=== PATIENT | male | born 1985 ===

== ENCOUNTER → 2017-05-09 | Outpatient (REF) ==
--- NOTE | 2017-05-09 15:51 | REP ---
Right knee series: Five views. History: Degenerative disc disease. Findings: Five views of the right knee demonstrate normal bones, joints, and soft tissues. No evidence of joint effusion or erosive change. Impression: Negative right knee radiographs. Signed by Nirav Marsh MD 05/09/2017 05:30 P
== END ==
LOC: M SMT 12:55
PROVIDERS: ATTEND Internal Medicine
DX: M54.5 Low back pain (principal)

== ENCOUNTER → 2017-05-17 | Outpatient (REF) | payer BC ==
[2017-05-17 13:31] LABS: BASO % 0.2 % (0.0-1.0); EOS # 0.1 10^3/uL (0.0-0.50); EOS % 2.2 % (0.0-3.0); IMMATURE GRANULOCYTE % 0.2 % (0-0); LYMPH # 0.9 10^3/uL (1.5-4.5); LYMPH % 14.2 % (24.0-44.0); MEAN CORPUSCULAR HGB CONC 33.5 g/dl (32.0-36.5); MEAN CORPUSCULAR VOLUME 89.7 fl (80.0-96.0); MONO # 0.4 10^3/uL (0.0-0.8); MONO % 6.2 % (0.0-5.0); NEUTROPHILS # 4.6 10^3/uL (1.8-7.7); PLATELET COUNT, AUTOMATED 220 10^3/uL (150-450); RED CELL DISTRIBUTION WIDTH 13.3 % (11.5-14.5)
[2017-05-17 13:42] LABS: ALBUMIN 4.1 GM/DL (3.2-5.2); ALBUMIN/GLOBULIN RATIO 1.37 (1.00-1.93); ALKALINE PHOSPHATASE 77 U/L (45-117); ALT/SGPT 62 U/L (12-78); ANION GAP 7 MEQ/L (8-16); AST/SGOT 33 U/L (15-37); BILIRUBIN,TOTAL 0.3 MG/DL (0.2-1.0); BLOOD UREA NITROGEN 17 MG/DL (7-18); CALCIUM LEVEL 8.9 MG/DL (8.5-10.1); CARBON DIOXIDE LEVEL 25 MEQ/L (21-32); CHLORIDE LEVEL 108 MEQ/L (98-107); CREATININE FOR GFR 0.94 MG/DL (0.70-1.30); GLOMERULAR FILTRATION RATE > 60.0 (>60); GLUCOSE, FASTING 107 MG/DL (70-105); POTASSIUM SERUM 3.5 MEQ/L (3.5-5.1); SODIUM LEVEL 140 MEQ/L (136-145); TOTAL PROTEIN 7.1 GM/DL (6.4-8.2)
[2017-05-17 14:14] LABS: VITAMIN B12 LEVEL > 2000 PG/ML (247-911)
[2017-05-17 14:15] LABS: FOLATE 8.2 NG/ML (>5.4)
[2017-05-17 14:22] LABS: ERYTHROCYTE SEDIMENTATION RATE 40 mm/hr (0-15)
== END ==
LOC: M LABNEURO 10:11
PROVIDERS: ATTEND Psychiatry & Neurology Neurology
DX: R51 Headache (principal); G40.909 Epilepsy, unspecified, not intractable, without status epilepticus